=== PATIENT | female | born 1960 | race Caucasian/White ===

== ENCOUNTER → 2024-06-18 08:53 | Outpatient (CLI) | payer OTHER, SELFPAY ==
[2024-06-18 10:19] LABS: Alanine Aminotransferase 14 IU/L (<35); Albumin 4.3 g/dL (3.5-5.0); Albumin Globulin Ratio 1.7 (1.0-2.8); Alkaline Phosphatase 62 U/L (38-126); Aspartate Aminotransferase 24 IU/L (14-36); BUN Creatinine Ratio 16.1 (6-22); Bilirubin Total 0.4 mg/dL (0.2-1.3); Blood Urea Nitrogen 15 mg/dL (7-17); Calcium 8.9 mg/dL (8.4-10.2); Carbon Dioxide 29 mmol/L (22-32); Chloride 106 mmol/L (98-107); Cholesterol 219 mg/dL (140-199); Estimated Glomerular Filt Rate > 60 mL/min (>60); Globulin 2.6 g/dL (1.7-4.1); Glucose 99 mg/dL (80-110); HDL Cholesterol 53 mg/dL (40-60); HEMOLYSIS < 15 (0-50); LDL Cholesterol Calculated 139 mg/dL (<100); Potassium 3.9 mmol/L (3.4-5.1); Sodium 139 mmol/L (137-145); Total Protein 6.9 g/dL (6.3-8.2); Triglycerides 136 mg/dL (35-150)
[2024-06-19 03:36] LABS: CRP, High Sensitivity 2.01 mg/L (0.00-3.00)
== END ==
PROVIDERS: PCP Family Medicine; Referring Provider Family Medicine; Visit Provider Family Medicine
DX: E07.9 Disorder of thyroid, unspecified (principal); I10 Essential (primary) hypertension
CPT/HCPCS: 36415; 80053; 80061; 84443; 86140

== ENCOUNTER → 2024-12-17 12:36 | Outpatient (CLI) | payer OTHER, SELFPAY ==
--- NOTE | 2024-12-17 12:38 | DI.RAD.S_ITS ---
PROCEDURE: XR DEXA AXIAL SKELETON INDICATIONS: menopausal COMPARISON: None. FINDINGS: Lumbar Spine, L1, L4: Bone mineral density 1.141 g/cm2, T score 0.9. Left Femoral Neck: Bone mineral density 0.708 g/cm2, T score -1.3. Left Hip: Bone mineral density 0.830 g/cm2, T score -0.9 Fracture Risk Calculation (when applicable): 10-year fracture risk of a major osteoporotic fracture 8.4 percent and of a hip fracture 1.2 percent. (T score greater or equal to -1.0 to: NORMAL) (T score from -1.1 to -2.4: OSTEOPENIA) (T score less than or equal to -2.5: OSTEOPOROSIS) IMPRESSION: Minimal osteopenia in the left femoral neck. Follow-up guidelines as follows: Osteoporosis: Consider a repeat DEXA and Vertebral Fracture Assessment (VFA) exam in 2 years or sooner if medically necessary, to reassess this patient's status. Osteopenia: Consider a repeat DEXA in 2-3 years to reassess this patient's status, or if there is a new clinical indication. Normal: Consider a repeat DEXA in 5 years or sooner, or if there is a new clinical indication. All treatment decisions require clinical judgment and consideration of individual patient factors, including patient preferences, comorbidities, previous drug use, risk factors not captured in the FRAX model (e.g., frailty, falls, vitamin D deficiency, increased bone turnover, interval significant decline in bone density ) and possible under- or over-estimation of fracture risk by FRAX. In addition, the NOF Guide recommends that FDA-approved medical therapies be considered in postmenopausal women and men age >= 50 years with a: * Hip or vertebral (clinical or morphometric) fracture * T-score of <=-2.5 at the spine or hip * Ten-year fracture probability by FRAX of >= 3% for hip fracture or >=20% for major osteoporotic fracture. Dictated by: Niecy León M.D. on 12/17/2024 at 20:31 Approved by: Niecy León M.D. on 12/17/2024 at 20:32
--- NOTE | 2024-12-17 12:38 | DI.ECHO.S_ITS ---
[facility]+ [facility] : : [address] [place] : : [id number] : : Phone: [phone] Echocardiogram Report + + :Name: PAMELLA SCHRADER Study Date: 12/17/2024 Height: 69 in : :Hospital ReadingLocation: Weight: 177 lb : : Gender: Female BSA: 2.0 m2 : :: 1960 Age: 64 yrs BP: 168/93 mmHg: :Reason For Study: MURMUR : :Ordering Physician: ESPERANZA, : :ABBY Performed By: Denys Ulloa : :Referring: ABBY MATA : + + Interpretation Summary 1) Normal left ventricular thickness, size, wall motion, and systolic function (EF 60-65%). 2) Normal right ventricular size and function. 3) Aortic valve is calcific but has no stenosis or regurgitatoin. 4) No prior Echo available for comparison. Procedure: A two-dimensional transthoracic echocardiogram with color flow and Doppler was performed. The study quality was technically good. There is no prior echocardiogram noted for this patient. The patient was in normal sinus rhythm during the exam. Left Ventricle: The left ventricle is normal in size. There is normal left ventricular wall thickness. There is no ventricular septal defect visualized. The ejection fraction is estimated to be 55-60%. There are no focal wall motion abnormalities. Diastolic parameters suggest a relaxation abnormality of the left ventricle, consistent with probable normal filling pressures. Right Ventricle: The right ventricle is normal in size and function. Atria: The left atrial size is normal. Right atrial size is normal. There is no Doppler evidence for an interatrial shunt. Mitral Valve: The mitral valve leaflets are mildly calcified. There is mild mitral regurgitation. Aortic Valve: The aortic valve is trileaflet. The aortic valve is mildly calcified. The aortic valve opens well. There is no aortic valve stenosis. No aortic regurgitation is present. Tricuspid Valve: The tricuspid valve leaflets are thin and pliable. There is a trace or physiologic amount of tricuspid regurgitation. Pulmonic Valve: The pulmonic valve is normal in structure and function. There is no pulmonic valvular regurgitation. Great Vessels: The aortic root is normal size. The ascending aorta is at the upper limits of normal in size. The pulmonary artery is normal size. The IVC is of normal diameter and collapses greater than 50% with a sniff. This suggests a low right atrial pressure of 3 mm Hg. Pericardium/ Pleura There is no pericardial effusion. There is no pleural effusion. MMode/2D Measurements & Calculations LVIDd: 5.2 cm LVOT diam: 2.2 cm LVIDs: 3.4 cm Ao root diam: 3.3 cm FS: 34.3 % asc Aorta Diam: 3.7 cm EPSS: 0.50 cm IVSd: 1.0 cm LVPWd: 0.81 cm LV ronquillo. diameter/BSA (cm/m^2): 2.6 LV sys. diameter/BSA (cm/m^2): 1.7 LA A2 area: 20.0 cm2 RA long axis: 4.2 cm LA A4 area: 17.6 cm2 RA area: 14.4 cm2 LA length (vol): 5.1 cm RA vol: 42.0 ml LA vol: 58.2 ml RA : 21.4 ml/m2 LA vol index: 29.7 ml/m2 IVC diam: 1.1 cm RVD1 (basal): 3.5 cm RVD2 (mid): 2.4 cm TAPSE: 2.8 cm Doppler Measurements & Calculations Ao V2 max: 126.8 cm/sec LVOT Max Gabriele: 87.2 cm/sec Ao V2 mean: 91.4 cm/sec LV V1 max P.0 mmHg Ao max P.4 mmHg LV V1 VTI: 20.2 cm Ao mean P.7 mmHg BRENDEN(I,D): 2.9 cm2 Ao V2 VTI: 26.8 cm BRENDEN(V,D): 2.6 cm2 sev ratio: 0.75 BRENDEN indexed to BSA (cm^2/m^2): 1.5 MV E max gabriele: 56.7 cm/sec PA V2 max: 100.1 cm/sec MV A max gabriele: 66.2 cm/sec PA V2 mean: 71.9 cm/sec MV E/A: 0.86 PA mean P.3 mmHg Med Peak E' Gabriele: 6.5 cm/sec PA pr(Accel): 12.2 mmHg E/E' med: 8.7 Lat Peak E' Gabriele: 7.0 cm/sec E/E' lat: 8.1 E/e' average: 8.4 MV dec time: 0.24 sec SV(LVOT): 76.5 ml Reading Physician:04:22 PM
== END ==
PROVIDERS: PCP Family Medicine; Referring Provider Family Medicine; Visit Provider Family Medicine
DX: I34.0 Nonrheumatic mitral (valve) insufficiency (principal); I44.0 Atrioventricular block, first degree; R01.1 Cardiac murmur, unspecified; N95.8 Other specified menopausal and perimenopausal disorders
CPT/HCPCS: 77080; 93306

== ENCOUNTER → 2024-12-25 07:48 | Outpatient (CLI) | payer OTHER, SELFPAY ==
--- NOTE | 2024-12-25 07:49 | DI.MG.S_ITS ---
MM screening mammo BI: 12/25/2024. BI-RADS: 1 CLINICAL: 64-year old female for bilateral screening mammogram. Tyrer-Cuzick lifetime risk of 23.1%. Current reported family history of breast cancer: sister and second sister. PRIOR EXAMS 11/11/23, 11/05/22, 11/03/21, 11/03/20. MAMMOGRAPHY TECHNIQUE: 2D and 3D (tomosynthesis) digital mammographic views obtained, with additional images as needed for full coverage. Current study was also evaluated with a Computer Aided Detection (CAD) system. DENSITY C. The breasts are heterogeneously dense, which may obscure small masses. MAMMOGRAPHY FINDINGS Bilateral: No suspicious mass, asymmetry, microcalcification, or other abnormality seen. IMPRESSION: * No evidence of malignancy. RECOMMENDATIONS Bilateral * According to the Tyrer-Cuzick Risk Assessment Model, based on the information provided your patient has a greater than 20% lifetime risk for developing breast cancer. Consider supplemental screening with breast MRI and participation in a high risk screening program. * Annual screening mammography. OVERALL ASSESSMENT CATEGORY BI-RADS-1: Negative. The [employer] recommends annual screening mammography beginning at age 40 for women with average risk of breast cancer. ELECTRONICALLY SIGNED: Janis Cruz M.D. on 12/25/2024 at 08:38:03 AM PT Interpreting Station ID: [id number]
== END ==
LOC: MAMMO 07:49
PROVIDERS: PCP Family Medicine; Referring Provider Family Medicine; Visit Provider Family Medicine
DX: Z12.31 Encounter for screening mammogram for malignant neoplasm of breast (principal); Z80.3 Family history of malignant neoplasm of breast
CPT/HCPCS: 77063; 77067

== ENCOUNTER 2025-02-01 09:53 | Day surgery (SDC) | payer OTHER, SELFPAY ==
--- NOTE | 2025-02-01 | PATH_ITS ---
[facility] Accession Number: [id number] No. of containers..02 Tissue . 01 Material submitted: . PART A: colon - COLON, POLYP AT 60 CM PART B: colon - SIGMOID POLYP . 01 Diagnosis: A: COLON AT 60 CM: Tubular adenoma. - B: SIGMOID COLON, POLYPECTOMY: Tubular adenoma. [facility] 02/11/2025 1348 Local . 01 Electronically signed: . Linden Connell MD, Pathologist NPI- [id number] . 01 Gross description: . A. Received in formalin with two identifiers and polyp 60 cm, are two soft christie tissue fragments ranging from 0.2 to 0.4 cm in greatest dimension. Entirely submitted in cassette A1. B. Received in formalin with two identifiers and sigmoid polyp, is a single christie polyp measuring 0.6 x 0.5 x 0.4 cm. Submitted intact in cassette B1. (AER:[id number]) /AYO 02/09/2025 0125 Local . 01 Pathologist provided ICD-10: Z12.11 . 01 CPT . 821775, 118673 Specimen Comment: A courtesy copy of this report has been sent to [phone] Performed at: [address] [facility], [place], [place] [id number] MD Jay Mccartney MD Phone: [phone]
[2025-02-01 10:17] VITALS: BP 138/98; PULSE 69; RESP 16; TEMP 36.1; O2SAT 98
[2025-02-01] MEDS: LACTATED RINGERS 1,000 ML 42 ML IV (10:32)
--- NOTE | 2025-02-01 10:47 | P.HP_ITS ---
History of Present Illness History of Present Illness Date Patient Seen: 02/01/25 Chief complaint: SDC Narrative: History of colon polyps [facility] Medical History (Updated 12/22/24 @ 17:31 by Laureen Dubon DO) Depression Surgical History (Updated 11/24/24 @ 08:57 by Laureen Dubon DO) Hx of appendectomy (~1976) Hx of dilation and curettage (~1996) Family History (Updated 11/24/24 @ 09:05 by Laureen Dubon DO) Brother Cancer Brother Cancer Mother Cancer Sister Cancer Sister Cancer Sister No problems noted. Brother No problems noted. 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 special liam needs: No other: rina Smoking Status: Current every day smoker additional social history: Moved to [place] 2023 Med Home Medications and Allergies Home Medications ?Medication ?Instructions ?Recorded ?Confirmed ?Type lorazepam 0.5 mg tablet 0.5 mg PO DAILY PRN severe a nxiety 06/16/24 02/01/25 Rx #10 tabs levothyroxine 75 mcg tablet 75 mcg PO DAILY #90 tabs 0 01/19/25 02/01/25 Rx lisinopril 10 mg tablet 10 mg PO DAILY #90 tabs 12/2602/01/25 Rx Allergies Allergy/AdvReac Type Severity Reaction Status Date / Time No Known Drug Allergies Allergy Verified 02/01/25 10:15 Exam Vital Signs (past 8 hours): - 02/01/25 10:17 Temperature 97.0 F L Pulse Rate 69 Respiratory Rate 16 Blood Pressure 138/98 H Pulse Oximetry 98 Oxygen Delivery Method Room Air Oxygen Delivery Method Room Air Narrative Exam Narrative: Oropharynx free of lesions Chest clear to auscultation percussion Cardiac exam reveals no S3 or murmur Assessment & Plan Assessment & Plan narrative: History of colon polyps need for follow-up colonoscopy. Risks, benefits, alternatives have been discussed Time-Based Coding :: [TOTAL MINUTES] spent with patient and on the chart (including review of chart, obtaining history, exam, reviewing outside data, placing orders, documenting exam and treatment plan, and counseling patient) on [DATE]. PROFEE Career Information Specialist Document charge(s): No
--- NOTE | 2025-02-01 10:48 | PM.OP.COLON ---
Operative Date/Time/Diagnoses Date of procedure: 02/01/25 Time of procedure: 11:39 Pre-op diagnosis: See indication and findings Post-op diagnosis: same Procedure & Clinicians Study performed: Colonoscopy Same procedure(s) as scheduled: Yes Indications: History of polyps Surgeon: Nataly Hillman Anesthesia Type: Other Procedure Notes Procedure in detail: After informed consent was obtained the patient was placed in left lateral decubitus position. The video colonoscope was introduced the rectum slowly advanced cecum. Preparation was good. On slow withdrawal mucosa was carefully examined. The scope was removed. The patient tolerated the procedure well. Blood loss none Complications none Sedation mac Findings 1. 4 mm sessile polyp at 60 cm Jumbo biopsy removed completely 2. 1 cm pedunculated polyp in the sigmoid cold snared and removed completely 3. Otherwise negative colonoscopy to cecum Patient should have follow-up colonoscopy in 5 years
[2025-02-01 11:43] VITALS: BP 124/64; PULSE 72; RESP 16; TEMP 36.3; O2SAT 96
[2025-02-01 11:48] VITALS: BP 120/66; PULSE 70; RESP 18; O2SAT 99
[2025-02-01 11:52] VITALS: BP 123/71; PULSE 61; RESP 18; TEMP 36.3; O2SAT 98
[2025-02-01 12:30] VITALS: BP 128/87; PULSE 68; RESP 14; O2SAT 98
== END 2025-02-01 12:45 | disposition home or self-care (01) ==
PROVIDERS: PCP Family Medicine; Referring Provider Internal Medicine Gastroenterology; Visit Provider Internal Medicine Gastroenterology
PROC: 0DJD8ZZ Inspection of Lower Intestinal Tract, Via Natural or Artificial Opening Endoscopic (ICD-10-PCS; CPT 45378; principal; 2025-02-01 11:00)
DX: Z12.11 Encounter for screening for malignant neoplasm of colon (principal); Z86.0100 Personal history of colon polyps, unspecified; F17.210 Nicotine dependence, cigarettes, uncomplicated; D12.5 Benign neoplasm of sigmoid colon; D12.6 Benign neoplasm of colon, unspecified
CPT/HCPCS: 45385; 45380; J2704